=== PATIENT | male | born 1995 | race African-American/Black ===

== ENCOUNTER 2017-06-24 18:37 | Emergency (ER) | payer OTHER ==
[~2017-06-24] VITALS: Ht 172.7 cm; Wt 90.3 kg
[~2017-06-24 18:37] MED LIST: FLONASE 0.05%50 MCG NASAL; SUDAFED 24-HOU240 MG PO
[2017-06-24] MEDS ORDERED: NAPROSYN500 MG PO (19:02)
[2017-06-24] MEDS ORDERED: FLEXERIL PO (19:03)
[2017-06-24] MEDS ORDERED: PREDNISONE 20 M20 MG PO (19:54)
[2017-06-24] MEDS ORDERED: HYDROCODONE-AP1 EAC6 PO (19:54)
== END 2017-06-24 20:10 | disposition home or self-care (01) ==
LOC: ER 18:37
DX: M51.26 Other intervertebral disc displacement, lumbar region (principal)

== ENCOUNTER 2017-09-09 20:04 | Emergency (ER) | payer OTHER ==
[~2017-09-09] VITALS: Ht 172.7 cm; Wt 81.7 kg
[~2017-09-09 20:04] MED LIST changes: +FLEXERIL PO; +HYDROCODONE-AP1 EAC6 PO; +NAPROSYN500 MG PO; +PREDNISONE 20 M20 MG PO
[2017-09-09] MEDS ORDERED: HYDROCODONE-AP1 EAC6 PO (20:42)
[2017-09-09] MEDS ORDERED: FLEXERIL PO (20:42)
[2017-09-09 21:19] VITALS: BP 130/78
== END 2017-09-09 21:21 | disposition home or self-care (01) ==
LOC: ER 20:04
DX: M54.32 Sciatica, left side (principal); M51.36 Other intervertebral disc degeneration, lumbar region

== ENCOUNTER 2018-10-27 11:47 | Emergency (ER) | payer BC ==
[~2018-10-27] VITALS: Ht 172.7 cm; Wt 88.5 kg
[2018-10-27 14:48] VITALS: BP 132/81
== END 2018-10-27 14:48 | disposition home or self-care (01) ==
LOC: ER 11:47
DX: S01.111A Laceration without foreign body of right eyelid and periocular area, initial encounter (principal); H11.31 Conjunctival hemorrhage, right eye; X58.XXXA Exposure to other specified factors, initial encounter; Y92.89 Other specified places as the place of occurrence of the external cause; Y93.67 Activity, basketball; Y99.8 Other external cause status